=== PATIENT | female | born 1980 ===

== ENCOUNTER 2019-11-19 05:41 | Day surgery (SDC) | payer OTHER ==
[2019-11-19] MEDS ORDERED: MORGIDOX100 MG PO (08:50)
[2019-11-19] MEDS ORDERED: Tylenol #3 PO (08:50)
== END 2019-11-19 13:00 | disposition home or self-care (01) ==
LOC: CIR.AMB 05:41 → ADM 08:00 → CIR.AMB 08:00
DX: D25.0 Submucous leiomyoma of uterus (principal); N84.0 Polyp of corpus uteri